=== PATIENT | female | born 1955 | race Caucasian/White ===

== ENCOUNTER 2017-07-22 12:41 | Outpatient (CLI) | payer OTHER | END 2017-07-22 12:42 | disposition home or self-care (01) | LOC: BICMAMMO 12:41 | PROVIDERS: ATTEND Obstetrics & Gynecology | DX: Z12.31 Encounter for screening mammogram for malignant neoplasm of breast (principal); R51 Headache | CPT/HCPCS: 70450; 77063; 77067 ==

== ENCOUNTER 2019-01-06 10:32 | Outpatient (CLI) | payer MEDICARE ==
--- NOTE | 2019-01-06 12:42 | MRI ---
MRI RIGHT KNEE: Date: 01/06/19 PROVIDED CLINICAL HISTORY: Right knee pain. FINDINGS: The anterior cruciate ligament, posterior cruciate ligament, medial collateral ligament, and lateral collateral ligamentous complex demonstrate an intact MR appearance, as does the extensor mechanism. The medial and lateral menisci demonstrate no evidence for tear. There is generalized tricompartmental articular cartilage thinning with focal full thickness articul ar cartilage absence involving the central weightbearing portions of the medial femorotibial joint. T here is partial thickness articular cartilage fissuring involving the median ridge of the patella. The amount of fluid within the knee joint appears physiologic. No focal concerning regional marrow or muscular signal abnormality is evident. 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 POS: OFF
== END 2019-01-06 10:33 | disposition home or self-care (01) ==
LOC: BICMRI 10:32
PROVIDERS: ATTEND Orthopaedic Surgery
DX: M23.91 Unspecified internal derangement of right knee (principal); M22.2X1 Patellofemoral disorders, right knee

== ENCOUNTER 2021-07-08 14:06 | Outpatient (CLI) | payer MEDICARE | END 2021-07-08 14:07 | disposition home or self-care (01) | LOC: BICMAMMO 14:06 | PROVIDERS: ATTEND Family Medicine | DX: Z12.31 Encounter for screening mammogram for malignant neoplasm of breast (principal) | CPT/HCPCS: 77063; 77067 ==

== ENCOUNTER 2022-06-20 07:25 | Outpatient (CLI) | payer MEDICARE ==
[2022-06-20] MEDS ORDERED: Iopamidol 370 76% 100 ML VIAL ONE (08:33)
== END 2022-06-20 07:26 | disposition home or self-care (01) ==
LOC: CT 07:25
PROVIDERS: ATTEND Physician Assistant Medical
DX: E03.9 Hypothyroidism, unspecified (principal); R10.13 Epigastric pain; R10.33 Periumbilical pain
CPT/HCPCS: 74177; 82565

== ENCOUNTER 2022-08-14 13:10 | Outpatient (CLI) | payer MEDICARE | END 2022-08-14 13:11 | disposition home or self-care (01) | LOC: BICMAMMO 13:10 | PROVIDERS: ATTEND Obstetrics & Gynecology | DX: Z12.31 Encounter for screening mammogram for malignant neoplasm of breast (principal) | CPT/HCPCS: 77063; 77067 ==

== ENCOUNTER 2023-09-15 12:06 | Outpatient (CLI) | payer MEDICARE | END 2023-09-15 12:07 | disposition home or self-care (01) | LOC: BICMAMMO 12:06 | PROVIDERS: ATTEND Nurse Practitioner Family | DX: Z12.31 Encounter for screening mammogram for malignant neoplasm of breast (principal) | CPT/HCPCS: 77063; 77067 ==